=== PATIENT | female | born 1970 | race Native Hawaiian/Other Pacific Islander ===

== ENCOUNTER 2017-02-11 04:33 | Emergency (ER) | payer OTHER ==
[~2017-02-11] VITALS: Ht 154.9 cm; Wt 114.8 kg
[2017-02-11 05:26] LABS: PLATELET COUNT 389 K/uL (152-353)
[2017-02-11 05:54] LABS: POTASSIUM 4.1 mmol/L (3.6-5.2); SODIUM 139 mmol/L (136-145)
== END 2017-02-11 09:46 | disposition home or self-care (01) ==
LOC: ED 04:33
PROVIDERS: Specialist
DX: K27.9 Peptic ulcer, site unspecified, unspecified as acute or chronic, without hemorrhage or perforation (principal); R07.89 Other chest pain
CPT/HCPCS: 36415; 80048; 82550; 82553; 83735; 84484; 85027; 85379; 86318; 93005; 99283

== ENCOUNTER 2020-08-31 14:34 | Emergency (ER) | payer OTHER ==
[~2020-08-31] VITALS: Ht 154.9 cm; Wt 117.9 kg
[2020-08-31 14:43] VITALS: TEMP 98.5
[2020-08-31 15:59] VITALS: BP 154/92
== END 2020-08-31 16:02 | disposition home or self-care (01) ==
LOC: ED 14:34
DX: N39.0 Urinary tract infection, site not specified (principal)
CPT/HCPCS: 81000; 81025; 87077; 87086; 87088; 87186; 96372; 99283; J0696; J1885

== ENCOUNTER 2021-06-29 17:57 | Emergency (ER) | payer OTHER ==
[~2021-06-29] VITALS: Ht 154.9 cm; Wt 117.9 kg
[2021-06-29 18:30] LABS: PLATELET COUNT 319 K/uL (152-353)
[2021-06-29 18:44] LABS: POTASSIUM 3.8 mmol/L (3.6-5.2)
[2021-06-29 19:30] VITALS: BP 154/90; TEMP 98.7
== END 2021-06-29 19:40 | disposition home or self-care (01) ==
LOC: ED 17:57
PROVIDERS: Hospitalist
DX: U07.1 COVID-19 (principal); J06.9 Acute upper respiratory infection, unspecified
CPT/HCPCS: 36415; 80048; 85027; 87635; 87651; 96372; 99283; J1100; U0003

== ENCOUNTER 2022-03-17 08:31 | Emergency (ER) | payer OTHER ==
[~2022-03-17] VITALS: Ht 154.9 cm; Wt 117.9 kg
[2022-03-17 08:40] VITALS: BP 178/81; TEMP 97.7
[2022-03-17] MEDS ORDERED: Z-PAK PO (09:13)
== END 2022-03-17 09:21 | disposition home or self-care (01) ==
LOC: ED 08:31
DX: J02.0 Streptococcal pharyngitis (principal); I10 Essential (primary) hypertension
CPT/HCPCS: 87651; 96372; 99283; J0696; J1885

== ENCOUNTER 2022-10-09 18:41 | Emergency (ER) | payer OTHER ==
[~2022-10-09] VITALS: Ht 154.9 cm; Wt 127.0 kg
[~2022-10-09 18:41] MED LIST: Z-PAK PO
[2022-10-09 19:14] LABS: PLATELET COUNT 325 K/uL (152-353)
[2022-10-09 19:22] LABS: POTASSIUM 3.6 mmol/L (3.6-5.2)
[2022-10-09 23:15] VITALS: BP 153/61; TEMP 98.5
== END 2022-10-09 23:15 | disposition home or self-care (01) ==
LOC: ED 18:41
PROVIDERS: Emergency Medicine
DX: R09.1 Pleurisy (principal)
CPT/HCPCS: 36415; 80053; 82550; 84484; 85027; 85610; 85730; 93005; 96374; 96375; 99284; J2270; J2405; Q9963